=== PATIENT | male | born 1995 | race Caucasian/White ===

== ENCOUNTER 2024-05-14 10:24 | Emergency (ER) | payer BC, SELFPAY ==
[2024-05-14] VITALS (7 sets, daily range): BP systolic 119–148; BP diastolic 58–92; PULSE 73–108; RESP 16–19; TEMP 36.7–36.8; O2SAT 96–98; BMI 20.9; BMI 32.1
--- NOTE | 2024-05-14 10:39 | XR_ITS ---
FINAL REPORT CLINICAL HISTORY: injury 05/13, pain, non-weight bearing FINDINGS: Left tibia fibula Two views were obtained. There is no acute fracture or dislocation. The joint spaces appear normal. No soft tissue abnormality is identified. IMPRESSION: No acute process. Reviewed, Interpreted and Dictated by Juvencio Julian MD Transcribed by Ana María Del Rosario Authenticated and [facility]
--- NOTE | 2024-05-14 10:39 | XR_ITS ---
FINAL REPORT CLINICAL HISTORY: injury 05/13, pain, non-weight bearing FINDINGS: Left ankle Three views were obtained. There is no acute fracture or dislocation. The joint spaces appear normal. The mortise is intact. No soft tissue abnormality is identified. IMPRESSION: No acute process. Reviewed, Interpreted and Dictated by Juvencio Julian MD Transcribed by Ana María Del Rosario Authenticated and [facility]
--- NOTE | 2024-05-14 10:39 | XR_ITS ---
FINAL REPORT CLINICAL HISTORY: injury 05/13, pain, non-weight bearing FINDINGS: Left foot Three views were obtained. There is no acute fracture or dislocation. The joint spaces appear normal. No soft tissue abnormality is identified. IMPRESSION: No acute process. Reviewed, Interpreted and Dictated by Juvencio Julian MD Transcribed by Ana María Del Rosario Authenticated and [facility]
--- NOTE | 2024-05-14 10:42 | PC.NURSE ---
xray orders placed per protocol. I s/w with Dr. Schofield regarding pt's injury and condition. verbal order received for Tylenol & ibuprofen & orders placed.
[2024-05-14] MEDS: ACETAMINOPHEN 500MG TAB 1000 MG PO (10:51)
[2024-05-14] MEDS: IBUPROFEN 600 MG TABLET PO (10:51)
--- NOTE | 2024-05-14 12:11 | ED_ITS ---
Discharge Plan Disposition Patient Disposition: Home, Self-Care Condition: Good Referrals Follow up/Referrals: Carlos Manuel Mejia JR, [employer] [Primary Care Provider] - See instructions Activity Restrictions/Add. Instructions Additional Instructions/Restrictions: You were evaluated in the ER. You are appropriate for discharge at this time. Wear the splint if needed for support for the next few days. Also use crutches to help you get around. Please take the splint off multiple times a day and perform range of motion exercises as instructed. Take Tylenol, ibuprofen as needed for pain. Do not exceed the recommended doses on the bottle. Start walking on the ankle as tolerated. Make an appointment with your primary care physician for reevaluation in a few days. Return to the ER with new, worsening, or otherwise concerning symptoms. Clinical Impressions Clinical Impression: Ankle pain, left Stand Alone Forms Stand Alone Forms: Work/School Release Print Language Print Language: Sami Discharge ED Provider: Navin Schofield General Adult HPI General Chief complaint: Extremity Injury, Lower Stated complaint: rolled ankle 05/13/24 ao Time Seen by Provider: 05/14/24 10:48 Mode of Arrival: Family Vehicle Source of Information: Patient Limitations: No Limitations Description of Symptoms (Recalled from ER Triage Doc. by RN): Pt c/o pain to left ankle, heel, and posterior LLE with difficulty bearing weight. States he was at work yesterday (05/13) and around 1200 he rolled his ankle. States he was wearing logging boots and he was able to frank of walk on it but he devl oped pain immediatly. He did iced his foot last night. 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 Mild swelling. No bruising or redness noted. History of Present Illness HPI narrative: 28-year-old male presents to the ER for complaints of left ankle pain. Patient states he was at work yesterday and rolled his left ankle stepping off a curb. He was wearing walking boots and was somewhat able to walk it off but after removing his boot had more instability and pain. He has had difficulty walking today despite icing his foot. Patient has mild swelling and has not taken any medications prior to arrival. He states most of his pain is in the inside and back of the ankle. Related Data Allergies Allergy/AdvReac Type Severity Reaction Status Date / Time No Known Allergies Allergy Verified 05/14/24 10:39 [facility] Disclaimer: The information contained in this section may have been updated after the patient was seen, as this information can be updated by other users. Social History Smoking Status: Never smoker alcohol intake: current current occupational status: employed Travel in the last 8 weeks: None ROS Obtained: Yes All systems reviewed & no additional complaints except as do cumented Musculoskeletal Musculoskeletal: Reports arthralgias and Reports joint swelling Physical Exam General General appearance: alert and in no apparent distress Head Head exam: atraumatic and normocephalic Eye Eye exam: Present PERRL and EOMI ENT ENT exam: Present mucous membranes moist Neck Neck exam: Present normal inspection and full ROM Chest Chest inspection: Present symmetric chest wall rise Respiratory Respiratory exam: Absent respiratory distress or stridor Cardiovascular Cardiovascular exam: Present regular rate and normal rhythm Extremities Exam Extremities exam: Present tenderness (Over the medial malleolus, medial heel, posterior heel), joint swelling (Mild, left ankle) and other (Neurovascularly intact throughout); Absent full ROM (Decreased plantarflexion of the left ankle secondary to posterior pain) Neurological Exam Neurological exam: Present alert and oriented X3; Absent motor sensory deficit Psychiatric Psychiatric exam: Present normal affect and normal mood Skin Skin exam: Present warm and dry Medical Decision Making Shan Inquiry Pt receiving controlled substance: No Vital Signs: 05/14/24 10:27 05/14/24 10:46 05/14/24 12:01 Temperature 98.0 F Temperature Source Oral Pulse Rate 108 H Pulse Rate [Right] 85 Respiratory Rate 19 Blood Pressure 139/67 122/65 Blood Pressure [Left Arm] 148/92 H Blood Pressure Mean 84 Blood Pressure Mean [Left Arm] 110 Blood Pressure Source [Left Arm] Automatic Cuff 02 Sat by Pulse Oximetry 98 98 Oxygen Delivery Method Room Air Orders (Tests/Meds): ED MEDICATIONS Discontinued Medications Generic Name Dose Route Start Last Admin Trade Name Freq PRN Reason Stop Dose Admin Acetaminophen 1,000 mg 05/14/24 10:45 05/14/24 10:51 Acetaminophen 500mg Tab PO 05/14/24 10:46 1,000 mg ONCE ONE Administration Ibuprofen 600 mg 05/14/24 10:45 05/14/24 10:51 Ibuprofen 600 Mg Tablet PO 05/14/24 10:46 600 mg ONCE ONE Administration ORDERS Category Date Time Status POCUS Point of Care (ER Only) Stat Exams 05/14/24 11:37 Taken XR ankle LT min 3V Stat Exams 05/14/24 10:39 Completed XR foot LT min 3V Stat Exams 05/14/24 10:39 Completed XR tibia fibula LT 2V Stat Exams 05/14/24 10:39 Completed Medical Decision Narrative: In summary, this 28-year-old male presents to the emergency department today with left ankle pain, swelling. On initial evaluation patient is tender to palpation on the medial malleolus, medial aspect of the ankle, heel, Achilles area of the left foot, Adkins test negative which is reassuring against full Achilles rupture though this was not my differential. Differential diagnosis includes but is not limited to fracture, dislocation, sprain, Achilles tendon injury. Based on these concerns, I ordered x-ray, oral pain control medications, POCUS. X-ray personally interpreted does not demonstrate acute osseous injury on my personal interpretation, see radiology read for final interpretation. Vobca-wa-lbsj ultrasound did not demonstrate Achilles tendon disruption. Patient was provided an ankle brace and crutches for ambulation. He was instructed on frequent range of motion exercises for strengthening. Patient was given instructions on symptomatic management, follow up instructions, and return precautions for the emergency department. Patient indicated understanding and was discharged in stable condition. Procedures Miscellaneous Procedure Procedure Performed: Indication: Left Achilles pain, tenderness Identified structures: Left Achilles tendon Location: Left Achilles tendon Findings: Normal, no findings of disruption Impression: No obvious disruption of the Achilles tendon, appears uniform Images were saved to the permanent archive. The study was technically adequate. Soft tissue CPT codes Neck: 35129-16 Upper extremity: 97767-49 Axilla: 97733-76 Chest wall: 17917-74 Breast: 58474-00 (complete), 40091-18-[RT/LT] (limited) Upper back: 84201-76 Abdominal wall: 24912-61 Pelvic wall: 71904-47 Lower extremity: 91622-52 Other soft tissue: 05927-30 This study was performed by me, and I personally interpreted all images/videos. Based on my clinical judgment, these images were adequate and did not necessitate further imaging. Critical Care Critical Care Time Critical Care Time: No
== END 2024-05-14 13:14 | disposition home or self-care (01) ==
PROVIDERS: Emergency Provider Emergency Medicine; PCP Nurse Practitioner Adult Health
DX: M25.572 Pain in left ankle and joints of left foot (principal); W10.1XXA Fall (on)(from) sidewalk curb, initial encounter
CPT/HCPCS: 73590; 73610; 73630; 99284

== ENCOUNTER 2025-03-24 10:24 | Emergency (ER) | payer BC, SELFPAY ==
[2025-03-24 10:31] VITALS: BP 123/59; PULSE 98; RESP 15; TEMP 36.8; O2SAT 99; BMI 30.8
--- OUTSIDE RECORDS SUMMARY | 2025-03-24 10:36 | XMS_ITS | Encounter Summary ---
Author Organization [place] [address] Care Team Providers Care Vice President Of Advertising Name Role Phone Carlos Manuel Mejia APRN Primary Care Provider [phone] Reason for Visit * Reason Comments Medication Refill Encounter Details Date Type Department Care Team (Late st Contact Info) Description 01/25/2025 Refill [facility] [address] [place], [place] [id number] Carlos Manuel Mejia APRN [address] [place] [address] Medication Refill Social History Tobacco Use Types Packs/Day Years Used Date Smoking Tobacco: Never Smokeless Tobacco: Current Chew Comments:pt uses dip Alcohol Use Standard Drinks/Week Comments Yes 0 (1 standard drink = 0.6 oz pur e alcohol) occ PHQ-2 Answer Date Recorded PHQ-2 Total Score 0 11/26/2023 Sex and Gender Information Value Date Recorded Sex Assigned at Not on file Legal Sex Male 8:50 PM EDT Gender Identity Not on file Sexual Orientation Not on file documented as of this encounter Functional Status * Is the person deaf or does he/she have serious difficulty hearing? Answer Date of Assessment Author No 11/26/2023 10:58 AM Tayla Lynne LPN * Is the person blind or does he/she have serious difficulty seeing even when wearing glasses? Answer Date of Assessment Author No 11/26/2023 10:58 AM Tayla Lynne LPN * Does this person have serious difficulty walking or climbing stairs? Answer Date of Assessment Author No 11/26/2023 10:58 AM Tayla Lynne LPN * Does this person have difficulty dressing or bathing? Answer Date of Assessment Author No 11/26/2023 10:58 AM Tayla Lynne LPN * Because of a physical, mental or emotional condition, does this person have difficulty doing errands alone such as visiting a doctor's office or shopping? Answer Date of Assessment Author No 11/26/2023 10:58 AM Tayla Lynne LPN documented as of this encounter Mental Status * Because of a physical, mental or emotional condition, does this person have serious difficulty concentrating, remembering or making decisions? Answer Entry Date Author No 11/26/2023 10:58 AM Tayla Lynne LPN documented in this encounter Ordered Prescriptions Prescription Sig Dispense Quantity Refills Last Filled Start Date End Date lisinopriL (PRINIVIL;ZESTRIL) 20 mg Oral Tablet tabletIndications:E ssential hypertension TAKE 1 TABLET BY MOUTH EVERY DAY 90 Tablet 01/26/2025 documented in this encounter Miscellaneous Notes * Telephone Encounter - Jillian Tee CPhT - 01/26/2025 11:20 AM EDT lisinopriL Future Visit: None Last Assessed Visit: 01/01/2024 Follow-Up Date: 07/03/2024 Last Office Visit: 11/20/2024 (dx code not assessed) Appointment protocol failed AND this patient requires the following labs/vitals. Routing to the office. Abnormal serum potassium OR potassium not on file within 6 months and Serum creatinine (6 months) documented in this encounter Plan of Treatment Upcoming Encounters Date Type Department Care Team (Late st Contact Info) Description 04/06/2025 10:30 AM EDT Office Visit [facility] [address] [place] [id number] Amber Frost APRN [address] [place] [address] documented as of this encounter Goals Goal Patient Goal Type Associated Problems Recent Progress Patient-Stated? Author Maintain a healthy diet, exercise regularly and maintain an ideal body weight General Neeta Santos LPN Stay Tobacco Free Lifestyle Neeta Santos LPN documented as of this encounter Visit Diagnoses Diagnosis Essential hypertension Unspecified essential hypertension documented in this encounter Discontinued Medications Medication Sig Discontinue Reason Start Date End Da te lisinopriL (PRINIVIL;ZESTRIL) 20 mg Oral Tablet tabletIndications:Henri al hypertension TAKE 1 TABLET BY MOUTH EVERY DAY 11/03/2024 01/26/2025 documented as of this encounter Care Teams Vice President Of Advertising Relationship Specialty Start Date End Date Carlos Manuel Mejia APRN [address] [place] [address] PCP - General Nurse Practitioner 11/30/23 documented as of this encounter
--- OUTSIDE RECORDS SUMMARY | 2025-03-24 10:36 | XMS_ITS | Encounter Summary ---
Author Organization [place] [address] Care Team Providers Care Sweat Box Attendant Name Role Phone Carlos Manuel Mejia APRN Primary Care Provider [phone] Reason for Visit * Reason Onset Date Comments Medication Refill 03/15/2025 Encounter Details Date Type Department Care Team (Late st Contact Info) Description 03/15/2025 Refill [facility] [address] [place], [place] [phone] Carlos Manuel Mejia APRN [address] [place], [place] [id number] Medication Refill Social History Tobacco Use Types [...] Tayla Lynne LPN documented in this encounter Miscellaneous Notes * Telephone Encounter - Daisy Younger - 03/17/2025 8:46 AM EDT Pt saw message but hasn't made an appointment. Can you close the encounter? * Telephone Encounter - Anne Jaffe MA - 03/16/2025 6:55 AM EDT Please schedule AWV then send message back for refill documented in this encounter Plan of Treatment Upcoming Encounters Date Type Department Care Team (Late st Contact Info) Description 04/06/2025 10:30 AM EDT Office Visit [facility] [address] [facility] [place] [id number] Amber Frost APRN [address] [place] [address] documented as of this encounter Goals Goal Patient Goal Type Associated Problems Recent Progress Patient-Stated? 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
--- OUTSIDE RECORDS SUMMARY | 2025-03-24 10:36 | XMS_ITS | Encounter Summary ---
Author Organization [place] [address] Care Team Providers Care Linux Systems Analyst Name Role Phone Carlos Manuel Mejia APRN Primary Care Provider [phone] Reason for Visit * Reason Onset Date Comments Medication Refill 03/15/2025 Encounter Details Date Type Department Care Team (Late st Contact Info) Description 03/15/2025 Refill [facility] [address] [place] [address] Mario Alberto Guerra MD [address] [place] [address] Medication Refill Social History Tobacco Use Types [...] Refills Last Filled Start Date End Date gabapentin (NEURONTIN) 300 mg Oral CapsuleIndications :Lumbar spine pain,Cervicalgia Take 2 Capsules by mouth 3 times daily for 30 days. 180 Capsule 03/16/2025 documented in this encounter Plan of Treatment Upcoming Encounters Date Type Department Care Team (Late st Contact Info) Description 04/06/2025 10:30 AM EDT Office Visit [facility] [address] [place] [address] Amber Frost APRN [address] [place] [address] documented as of this encounter Goals Goal Patient Goal Type Associated Problems Recent Progress Patient-Stated? Author Maintain a healthy diet, exercise regularly and maintain an ideal body weight General No Neeta Dawson LPN Stay Tobacco Free Lifestyle Neeta Santos LPN documented as of this encounter Visit Diagnoses Diagnosis Lumbar spine pain Lumbago Cervicalgia documented in this encounter Discontinued Medications Medication Sig Discontinue Reason Start Date End Da te gabapentin (NEURONTIN) 300 mg Oral CapsuleIndications:Lumb ar spine pain,Cervicalgia Take 2 Capsules by mouth 3 times daily for 30 days. Reorder 02/10/2025 03/15/2025 documented as of this encounter Care Teams Linux Systems Analyst Relationship Specialty Start Date End Date Carlos Manuel Mejia, YUMIKO [address] [place] [address] PCP - General Nurse Practitioner 11/30/23 documented as of this encounter
--- OUTSIDE RECORDS SUMMARY | 2025-03-24 10:36 | XMS_ITS | Encounter Summary ---
Author Organization [place] [address] Care Team Providers Care Mucker Operator Name Role Phone Carlos Manuel Mejia APRN Primary Care Provider [phone] Reason for Visit * Reason Onset Date Comments Medication Refill 02/10/2025 Encounter Details Date Type Department Care Team (Late st Contact Info) Description 02/10/2025 Refill [facility] [address] [place] [address] Mario Alberto Guerra MD [address] [place] [address] Medication Refill Social History Tobacco Use Types [...] encounter Miscellaneous Notes * Telephone Encounter - Lisette Birch Athletic Trainer - 02/10/2025 4:58 PM EDT Patient needs an appointment prior to refill. documented in this encounter Plan of Treatment Upcoming Encounters Date Type Department Care Team (Late st Contact Info) Description 04/06/2025 10:30 AM EDT Office Visit [facility] [address] [place] [address] Amber Frost APRN [address] [place] [address] documented as of this encounter Goals Goal Patient Goal Type Associated Problems Recent Progress Patient-Stated? Author Maintain a healthy diet, exercise regularly and maintain an ideal body weight General No Neeta Dawson LPN Stay Tobacco Free Lifestyle No Neeta Dawson LPN documented as of this encounter Visit Diagnoses Diagnosis Lumbar spine pain Lumbago Cervicalgia documented in this encounter Care Teams Mucker Operator Relationship Specialty Start Date End Date Carlos Manuel Mejia, YUMIKO [address] [place] [address] PCP - General Nurse Practitioner 11/30/23 documented as of this encounter
--- OUTSIDE RECORDS SUMMARY | 2025-03-24 10:36 | XMS_ITS | Encounter Summary ---
Author Organization [place] [address] Care Team Providers Care Machine Maintenance Supervisor Name Role Phone Carlos Manuel Mejia APRN Primary Care Provider [phone] Reason for Visit * Reason Comments Medication Refill Encounter Details Date Type Department Care Team (Late st Contact Info) Description 01/25/2025 Refill [facility] [address] [place] [address] Rhiannon Bowie PA [address] [place] [address] Medication Refill Social History Tobacco Use Types [...] times daily for 30 days. 180 Capsule 02/10/2025 documented in this encounter Miscellaneous Notes * Addendum Note - Jimena Su CMA - 02/10/2025 3:47 PM EDTAddended by: JIMENA SU on: 02/10/2025 03:47 PM Modules accepted: Orders * Telephone Encounter - Jimena Su CMA - 02/10/2025 3:33 PM EDT Patient issue: Patient is aware next appointment will need to be office, patient is coming into office for TPI injections but will need to figure out a time for medication follow up. Medication: Gabapentin 300 mg Date started: n/a Patient reports will be out of medications before appointment and would like replacement medications--all medications are addressed and refilled at appointment. documented in this encounter Plan of Treatment Upcoming Encounters Date Type Department Care Team (Late st Contact Info) Description 04/06/2025 10:30 AM EDT Office Visit [facility] [address] [place] [address] Amber Frost APRN [address] [place] [address] documented as of this encounter [...] Take 2 Capsules by mouth 3 times daily. Reorder 09/12/2024 02/10/2025 documented as of this encounter Care Teams Machine Maintenance Supervisor Relationship Specialty Start Date End Date Carlos Manuel Mejia APRN [address] [place] [address] PCP - General Nurse Practitioner 11/30/23 documented as of this encounter
--- OUTSIDE RECORDS SUMMARY | 2025-03-24 10:36 | XMS_ITS | Patient Health Record ---
Author Organization [facility] Address [address] [place] [id number] Care Team Providers Care Burn Table Operator Name Role Phone st elkinsrickypreciou[facility] Primary Care Provider Dorcas perezleonidas Dillon Claire Unavailable [phone] Allergies No Known Allergies Reason For Referral No Information Medications Medication SIG (Take, Route, Frequency, Duration) Notes Start Date End Date Status Coricidin HBP Cold/Cough/Flu 650-20 MG/30ML 30 mL may be given every 4 hours as needed Orally Five times a day 11/12/2024 Active Lisinopril 10 MG 1 tablet Orally Once a day Active Methocarbamol 500 MG 1.5 tablets Orally every 4 hrs Active Saline Nasal [place] 0.65 % as directed Nasally 10/16 Active Omeprazole 10 MG 1 capsule 30 minutes before morning meal Orally Once a day Active Gabapentin 300 MG 1 capsule Orally Onc e a day Active Immunizations Vaccine Route Administration Date Status Comme nts [id number] Quad PFS (0.5mL Admin) 18 y/o & older Unknown 12/04/2021 Refused z2022 FluBLOK Quad PFS (0.5m L Admin) 18 y/o & older Unknown 01/27/2023 Refused Social History Tobacco Use: Social History Observation Description Date Details (start date - stop date) Unknown Sex Assigned At : Social History Observation Description Sex Assigned At Male Tobacco Control (Standard) Question Answer Notes Tobacco use: Uses tobacco in other forms Additional Findings: Tobacco user Chews tobacco Problems Problem Type SNOMED Code ICD Code Onset Dates Problem Status W/U Status Risk Notes Problem Obese (190383993) Obese (E66.9) 08/04/20 23 Active confirmed Problem Elevated blood pressure (06283173) Elevated BP (I10) Active confirmed Problem Body mass index 30+ - obesity (947465189) BMI 30.0-30.9,artemio lt (Z68.30) Active confirmed Problem Tobacco user (632581765) Tobacco dependence due to cigarettes (F17.210) Active confirmed Problem [id number] Tobacco dependence due to chewing tobacco (F17.220) Active confirmed Vital Signs Temperature 98 degrees Fahrenheit 11/12/2024 Respiratory Rate 16 /min 11/12/2024 Oximetry 98 11/12/2024 Blood pressure diastolic 74 mm Hg 11/12/2024 Height 74 in 11/12/2024 Blood pressure systolic 120 mm Hg 11/12/2024 Weight 235 lbs 11/12/2024 BMI 30.17 kg/m2 11/12/2024 Encounters Encounter Location Date Provider Diagnosis [address] [address] 11/12/2024 Claire Carranza Acute sinusitis, unspecified J01.90 Assessments Encounter Date Diagnosis (ICD Code) Assessment Notes Treatment Notes Treatment Clinical Notes Section Notes 11/12/2024 Acute sinusitis, unspecified (ICD-10 - J01.90) Plan Of Treatment No Information Insurance Providers Payer Name Payer Address Payer Phone Subscriber Number Group Number Insured Name Patient Relationship to Insured Coverage Start Date Coverage End Date [facility] [address] [place] [address] [id number] Andres Huggins Self - patient is the insured Medical (General) History Medical History History ICD Code season allergies anxiety acid reflux neck and back issues HTN
--- OUTSIDE RECORDS SUMMARY | 2025-03-24 10:36 | XMS_ITS | Clinical Summary ---
Author Organization [facility] Address [address] [place] [address] Phone Care Team Providers Care Carriage Dogger Name Role Phone Carlos Manuel Mejia APRN Primary Care Provider Allergies No known active allergies Medications omeprazole (PRILOSEC) 40 mg Oral Capsule, Delayed Release(E.C.)Praveena cations:Gastroeso phageal reflux disease, esophagitis presence not specified Take 1 Cap by mouth daily. 30 Cap 5 9 Active methocarbamoL (ROBAXIN) 750 mg Oral TabletIndications :Myofascial pain Take 1 Tablet by mouth 3 times daily as needed (muscle spasm). 90 Tablet 1 4 Active ketoconazole (NIZORAL) 2 % Top CreamIndications: Ringworm of body APPLY TO AFFECTED AREA EVERY DAY 30 g 2 4 Active methocarbamoL (ROBAXIN) 750 mg Oral TabletIndications :Myofascial pain Take 1 Tablet by mouth 3 times daily as needed (muscle spasm). 90 Tablet 2 4 Active sildenafiL (VIAGRA) 50 mg Oral TabletIndications :ED (erectile dysfunction) of non-organic origin Take 1 Tablet by mouth daily as needed for Erectile Dysfunction. 30 Tablet 1 5 Active lisinopriL (PRINIVIL;ZESTRIL ) 20 mg Oral Tablet tabletIndications :Essential hypertension TAKE 1 TABLET BY MOUTH EVERY DAY 90 Tablet 5 Active gabapentin (NEURONTIN) 300 mg Oral CapsuleIndication s:Lumbar spine pain,Cervicalgia Take 2 Capsules by mouth 3 times daily for 30 days. 180 Capsule 5 04/15/20 25 Active Active Problems Patient Care Coordination No te Formatting of this note migh t be different from the original. [facility] - Mario Alberto Guerra MD Controlled Substance Protocol Completed: Gabapentin and/or Pregabalin A. Informed Consent Statement signed (Yearly) ( 02/05/24 ) B. Controlled Substance Agreement signed (Yearly) ( 02/05/24 ) D. Shan report completed (EVERY 3 MONTHS) ( 10/14/24 ) Pharmacy: [id number] [place] [address] [address] [facility] [phone] [facility] additional info (Transportation, WC, Compound, No Show, PPW) No known active problems Encounters Date Type Department Care Team Description 03/15/2025 Refill [facility] [address] [place] [address] Mario Alberto Guerra MD Medication Refill 03/15/2025 Refill [facility] [address] [place] [address] Carlos Manuel Mejia APRN Medication Refill 02/10/2025 Refill [facility] [address] [place] [address] Mario Alberto Guerra MD Medication Refill 01/25/2025 Refill [facility] [address] [place] [address] Carlos Manuel Mejia APRN Medication Refill 01/25/2025 Refill [facility] [address] [place] [address] Rhiannon Bowie PA Medication Refill from Last 3 Months Immunizations Immunization Administration Dates Next Due DTaP 02/23/1999, 6,02/23/1995,12/22,1994 Hepatitis A, Unspecified Formulation 04/24/2008, 05/03/2007 Hepatitis B, Unspecified Formulation 05/28/1995, 1994,1994 HiB, Unspecified Formulation 12/03/1995, 02/23/1995,1994,10/23 IPV 12/03/1995, 5,1994,10/23 MMR 02/23/1999,12/03/1995 Meningococcal C Conjugate-In active Vaccine 05/02/2011,04/14/2009 Meningococcal Conjugate 05/02/2011,04/14/2009 Tdap 05/31/2023,01/06/2015,05/04/2006 Varicella 07/24/2008,08/23/1998 Family History Medical History Relation Name Comments Diabetes Maternal Grandfather Heart Disease Maternal Grandfather Relation Name Status Comments Maternal Grandfather Social History Tobacco Use Types Packs/Day Years Used Date Smoking Tobacco: Never Smokeless Tobacco: Current Chew Tobacco Cessation:Ready to Q uit: Not Asked; Counseling Given: Not Answered Comments:pt uses dip Alcohol Use Standard Drinks/Week Comments Yes 0 (1 standard drink = 0.6 oz pur e alcohol) occ PHQ-2 Answer Date Recorded PHQ-2 Total Score 0 11/26/2023 Sex and Gender Information Value Date Recorded Sex Assigned at Not on file Legal Sex Male 8:50 PM EDT Gender Identity Not on file Sexual Orientation Not on file Obstetrics History Last Filed Vital Signs Vital Sign Reading Time Taken Comments Blood Pressure 120/78 11/20/2024 2:19 PM EST Pulse 64 11/20/2024 2:19 PM EST Temperature 36.7 C (98 F) 11/20/2024 2:19 PM EST Respiratory Rate 16 11/20/2024 2:19 PM EST Oxygen Saturation 99% 11/20/2024 2:19 PM EST Inhaled Oxygen Concentration - - Weight 109.8 kg (242 lb) 11/20/2024 2:19 PM EST Height 188 cm (6' 2 ) 11/20/2024 2:19 PM EST Body Mass Index 31.07 11/20/2024 2:19 PM EST Plan of Treatment Upcoming Encounters Date Type Department Care Team (Late st Contact Info) Description 04/06/2025 10:30 AM EDT Office Visit [facility] [address] [facility] [phone] Amber Frost, [employer] [phone] [place] [phone] Health Maintenance Due Date Last Done Comments COVID-19 Vaccine ( season) 2024 Annual Wellness Exam 12/31/2024 01/01/2024, 11/07/2022, 08/04/2019 Influenza Vaccine (Season Ended) 2025 07/09/2017 (Declined), 06/28/2016 (Declined), 09/15/2015 (Declined) DTaP/TDaP/Td (9 - Td or Tdap) 05/31/2033 05/31/2023, 01/06/2015, 05/04/2006, Additional history exists Hepatitis B Vaccine Completed 05/28/1995, 1994, 1994 Meningococcal B Vaccine Aged Out No l onger eligible based on patient's age to complete this topic Pneumococcal Vaccine 0-49 Aged Out No longer eligible based on patient's age to complete this topic Goals Goal Patient Goal Type Associated Problems Recent Progress Patient-Stated? Author Maintain a healthy diet, exercise regularly and maintain an ideal body weight General No Neeta Dawson LPN Stay Tobacco Free Lifestyle No Neeta Dawson LPN Insurance [employer] [facility] [employer] PPO Care Teams Carriage Dogger Relationship Specialty Start Date End Date Carlos Manuel Mejia APRN [address] [place] [address] PCP - General Nurse Practitioner 11/30/23
--- NOTE | 2025-03-24 10:46 | XR_ITS ---
FINAL REPORT CLINICAL HISTORY: Right wrist/hand pain FINDINGS: RIGHT WRIST Three views were obtained. There is no fracture or dislocation. The joint spaces appear normal. No soft tissue abnormality is identified. IMPRESSION: No acute process. Reviewed, Interpreted and Dictated by Juvencio Julian MD Transcribed by Ana María Del Rosario Authenticated and [facility]
--- NOTE | 2025-03-24 10:47 | XR_ITS ---
FINAL REPORT CLINICAL HISTORY: Right hand/wrist pain FINDINGS: RIGHT HAND Three views were obtained. There is no fracture or dislocation. The joint spaces appear normal. No soft tissue abnormality is identified. IMPRESSION: No acute process. Reviewed, Interpreted and Dictated by Juvencio Julian MD Transcribed by Ana María Del Rosario Authenticated and . [facility]
--- NOTE | 2025-03-24 10:49 | ED_ITS ---
Discharge Plan Disposition Patient Disposition: Home, Self-Care Condition: Good Referrals Follow up/Referrals: Johnson Luu DO [Staff Physician, Orthopedics] - See instructions Carlos Manuel Mejia JR, APRN [Primary Care Provider, Medical] - See instructions Activity Restrictions/Add. Instructions Additional Instructions/Restrictions: Please return to the emergency department any worsening pain or swelling, any worsening decreased range of motion, please utilize your wrist brace as needed, please decrease repetitive movements, I recommend rest ice, ibuprofen Tylenol and other anti-inflammatory medications as needed for pain. Please follow-up with orthopedic doctor and your family doctor in the upcoming days/weeks. Clinical Impressions Clinical Impression: Sprain and strain of right wrist Stand Alone Forms Stand Alone Forms: Work/School Release Instructions Patient Instructions: DI for Wrist Strain Print Language Print Language: Divehi Discharge ED Provider: Montana Nuñez Adult HPI <MILDRED Reynolds - Last Filed: 03/24/25 11:38> General Chief complaint: Extremity Injury, Upper Stated complaint: Right wrist swelling limited movement Time Seen by Provider: 03/24/25 10:40 Mode of Arrival: Ambulatory Source of Information: Patient Description of Symptoms (Recalled from ER Triage Doc. by RN): patient states natalie his right wrist started hurting, yesterday the pain was so bad he couldnt move it. 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 Pain is located to the lateral aspect of his right wrist and hand, he has difficulty with range of motion and noticed some remote swelling last night with pain, took Tylenol which did help/alleviate some of his symptoms, he denies any numbness or tingling, however at times he will wake up in the morning and have numbness and tingling in both hands , patient denies any fever chills chest pain shortness of breath, no upper or lower extremity weakness, no urinary bladder or bowel dysfunction, no saddle anesthesia, no nausea or vomiting, patient has no other real relevant past medical history, except for smokeless tobacco, and hypertension, as well as ongoing what sounds like lumbar spine pathology for which he utilizes muscle relaxers and gabapentin for at times. Has any alcohol use, denies any other drug use, initial triage vitals unremarkable, patient denies any other trauma or injury. Onset (ago): day(s) Related Data Allergies Allergy/AdvReac Type Severity Reaction Status Date / Time No Known Allergies Allergy Verified 05/14/24 10:39 PFS <MILDRED Reynolds - Last Filed: 03/24/25 11:38> [facility] Disclaimer: The information contained in this section may have been updated after the patient was seen, as this information can be updated by other users. Social History (Updated 05/14/24 @ 13:02 by Navin Schofield MD) Smoking Status: Current every day smoker alcohol intake: current current occupational status: employed Travel in the last 8 weeks?: None Have you lived/traveled outside US in past 30 days?: No Contact w/someone who lives/traveled outside US past 30 days?: No Exposure to someone with infectious disease in past 14 days?: No Do you have a fever (greater than 100.4 F or 38 C)?: No Have you tested positive for COVID-19?: No Exposed to someone with COVID-19 in past 14 days?: No Do you have a sore throat?: No Do you have a cough?: No Do you have any weakness?: No Do you have any diarrhea?: No Are you experiencing any unusual bleeding?: No Do you have any muscle aches/pain?: No Do you have any abdominal pain?: No Are you experiencing loss of taste or smell?: No <MILDRED Reynolds - Last Filed: 03/24/25 11:38> ROS Obtained: Yes All systems reviewed & no additional complaints except as documented Physical Exam <MILDRED Reynolds - Last Filed: 03/24/25 11:38> General General appearance: alert and in no apparent distress Head Head exam: atraumatic and normocephalic Eye Eye exam: Present PERRL and EOMI ENT ENT exam: Present mucous membranes moist Neck Neck exam: Present normal inspection Chest Chest inspection: Present normal inspection and symmetric chest wall rise Respiratory Respiratory exam: Present normal lung sounds bilaterally; Absent respiratory distress Cardiovascular Cardiovascular exam: Present regular rate and normal rhythm Abdominal Exam Abdominal exam: Present soft; Absent tenderness Extremities Exam Extremities exam: Present normal inspection, tenderness, joint swelling and other (Mild soft tissue swelling about the right wrist/hand, no anatomical snuffbox tenderness, patient has good finger opposition, negative Kanavals signs, there is some mild pain palpation to the lateral aspect around the ulnar head, and up the forearm into the elbow, patient has some difficulty with pro); Absent full ROM Neurological Exam Neurological exam: Present alert and oriented X3 Psychiatric Psychiatric exam: Present normal affect Skin Skin exam: Present warm and dry Medical Decision Making <MILDRED Reynolds - Last Filed: 03/24/25 11:38> Medical Records Medical records reviewed: Yes I reviewed the patient's medical records. Screening: Per USPSTF and CDC recommendations, given the prevalence of disease in our region, it is our hospital?s policy to screen for HIV and viral Hepatitis for all patients aged 18 and over and those with ongoing risk factors. Shan Inquiry Pt receiving controlled substance: No Shan was queried for this patient: No Vital Signs: 03/24/25 10:31 03/24/25 11:00 03/24/25 11:30 Temperature 98.2 F Temperature Source Oral Pulse Rate 94 H 89 Pulse Rate [Right Radial] 98 H Respiratory Rate 15 18 18 Blood Pressure 117/68 117/70 Blood Pressure [Right Arm] 123/59 L Blood Pressure Mean 81 80 Blood Pressure Mean [Right Arm] 80 Blood Pressure Source Blood Pressure Source [Right Arm] Automatic Cuff Blood Pressure Position Blood Pressure Position [Right Arm] Sitting 02 Sat by Pulse Oximetry 99 96 97 Oxygen Delivery Method Room Air 03/24/25 11:38 Temperature 98.4 F Temperature Source Oral Pulse Rate 66 Pulse Rate [Right Radial] Respiratory Rate 15 Blood Pressure 140/85 Blood Pressure [Right Arm] Blood Pressure Mean Blood Pressure Mean [Right Arm] Blood Pressure Source Automatic Cuff Blood Pressure Source [Right Arm] Blood Pressure Position Sitting Blood Pressure Position [Right Arm] 02 Sat by Pulse Oximetry Oxygen Delivery Method Room Air Orders (Tests/Meds): ORDERS Category Date Time Status XR hand RT min 3V Stat Exams 03/24/25 10:47 Completed XR wrist RT min 3V Stat Exams 03/24/25 10:46 Completed Medical Decision Narrative: 29-year-old male presents emerged from with right wrist/hand pain, for several days, differential diagnose include but not limited to, lateral epicondylitis, medial epicondylitis, carpal tunnel syndrome, forearm tendinopathy, wrist tendinopathy, wrist sprain/strain, wrist fracture, hand sprain/strain, hand fracture. Discussed patient case with inpatient Obtain x-rays of the right hand and wrist for further evaluation/characterization. Reviewed the patient's right hand x-ray along the corresponding radiologic report, no acute process. I reviewed the patient's right wrist x-ray along with corresponding radiologic report no acute process. I discussed the results with the patient at the bedside, I recommend rest ice compression elevation, will fit patient with a prefabricated wrist brace, patient will need orthopedic follow-up, most likely nonspecific tendinopathy, negative for any constitutional symptoms, I do not suspect tendon sheath in flammation/infection at this time, as patient has good range of motion, good finger opposition, with repetitive motions, could be carpal tunnel syndrome versus tendinopathy, recommend decrease repetitive motions, wear wrist brace for comfort and support, patient will follow-up with orthopedic provider/PCP and return to the emergency room with any worsening signs or symptoms, recommend ibuprofen Tylenol other anti-inflammatory medication as needed for pain and swelling. <Montaan Nuñez MD - Last Filed: 03/24/25 12:04> Vital Signs: 03/24/25 10:31 03/24/25 11:00 03/24/25 11:30 Temperature 98.2 F Temperature Source Oral Pulse Rate 94 H 89 Pulse Rate [Right Radial] 98 H Respiratory Rate 15 18 18 Blood Pressure 117/68 117/70 Blood Pressure [Right Arm] 123/59 L Blood Pressure Mean 81 80 Blood Pressure Mean [Right Arm] 80 Blood Pressure Source Blood Pressure Source [Right Arm] Automatic Cuff Blood Pressure Position Blood Pressure Position [Right Arm] Sitting 02 Sat by Pulse Oximetry 99 96 97 Oxygen Delivery Method Room Air 03/24/25 11:38 Temperature 98.4 F Temperature Source Oral Pulse Rate 66 Pulse Rate [Right Radial] Respiratory Rate 15 Blood Pressure 140/85 Blood Pressure [Right Arm] Blood Pressure Mean Blood Pressure Mean [Right Arm] Blood Pressure Source Automatic Cuff Blood Pressure Source [Right Arm] Blood Pressure Position Sitting Blood Pressure Position [Right Arm] 02 Sat by Pulse Oximetry Oxygen Delivery Method Room Air Orders (Tests/Meds): ORDERS Category Date Time Status XR hand RT min 3V Stat Exams 03/24/25 10:47 Completed XR wrist RT min 3V Stat Exams 03/24/25 10:46 Completed Medical Decision Narrative: 29-year-old male presents emerged from with right wrist/hand pain, for several days, differential diagnose include but not limited to, lateral epicondylitis, medial epicondylitis, carpal tunnel syndrome, forearm tendinopathy, wrist tendinopathy, wrist sprain/strain, wrist fracture, hand sprain/strain, hand fracture. Discussed patient case with inpatient Obtain x-rays of the right hand and wrist for further evalu ation/characterization. Reviewed the patient's right hand x-ray along the corresponding radiologic report, no acute process. I reviewed the patient's right wrist x-ray along with corresponding radiologic report no acute process. I discussed the results with the patient at the bedside, I recommend rest ice compression elevation, will fit patient with a prefabricated wrist brace, patient will need orthopedic follow-up, most likely nonspecific tendinopathy, negative for any constitutional symptoms, I do not suspect tendon sheath inflammation/infection at this time, as patient has good range of motion, good finger opposition, with repetitive motions, could be carpal tunnel syndrome versus tendinopathy, recommend decrease repetitive motions, wear wrist brace for comfort and support, patient will follow-up with orthopedic provider/PCP and return to the emergency room with any worsening signs or symptoms, recommend ibuprofen Tylenol other anti-inflammatory medication as needed for pain and swelling. I was consulted by the MAGDA, and we discussed the complexity of the problems being addressed.I approved the treatment and management plan for this patient?s care in the Emergency Department, thus performing a substantive portion of the medical decision making.Signed, Montana Nuñez MD MBA Critical Care <MILDRED Reynolds - Last Filed: 03/24/25 11:38> Critical Care Time Critical Care Time: No
--- NOTE | 2025-03-24 10:50 | PC.NURSE ---
XR AT BEDSIDE
[2025-03-24 11:00] VITALS: BP 117/68; PULSE 94; RESP 18; O2SAT 96
--- NOTE | 2025-03-24 11:28 | PC.NURSE ---
Rounded on patient, no needs voiced at this time.
[2025-03-24 11:30] VITALS: BP 117/70; PULSE 89; RESP 18; O2SAT 97
[2025-03-24 11:38] VITALS: BP 140/85; PULSE 66; RESP 15; TEMP 36.9; O2SAT 98
== END 2025-03-24 11:46 | disposition home or self-care (01) ==
PROVIDERS: Emergency Provider Emergency Medicine; PCP Nurse Practitioner Adult Health
DX: S63.501A Unspecified sprain of right wrist, initial encounter (principal); S66.911A Strain of unspecified muscle, fascia and tendon at wrist and hand level, right hand, initial encounter; R22.31 Localized swelling, mass and lump, right upper limb; X50.0XXA Overexertion from strenuous movement or load, initial encounter
CPT/HCPCS: 73110; 73130; 99283